=== PATIENT | male | born 1935 | race Caucasian/White ===

== ENCOUNTER 2021-06-27 21:22 | Inpatient (IN) ==
[2021-06-27] MEDS ORDERED: Isovue-370 500 ML BOTTLE IVP ONE (21:36)
[2021-06-27 21:43] LABS: Hemoglobin 13.2 g/dL (12.9-16.9); Immature Granulocytes % 0.7 % (0-4); Lymphocytes # 0.9 K/mcL (0.6-4.6); Lymphocytes % 20.6 %; Mean Corpuscular Hemoglobin 29.5 pg (28.0-33.3); Mean Corpuscular Volume 89.3 fL (83.0-100.0); Mean Platelet Volume 10.5 fL (9.4-12.4); Monocytes # 0.2 K/mcL (0.0-1.3); Monocytes % 5.3 %; Neutrophils # 3.4 K/mcL (1.6-8.9); Platelet Count 189 K/mcL (140-400); Red Blood Count 4.48 M/mcL (4.19-5.50); Red Cell Distribution Width 14.9 % (11.5-14.5); Segmented Neutrophils % 73.4 %; White Blood Count 4.6 K/mcL (4.3-11.1)
[2021-06-27 22:05] LABS: Alanine Aminotransferase 21 Units/L (7-52); Albumin 3.9 g/dL (3.5-5.7); Albumin/Globulin Ratio 1.3 (1.1-2.2); Alkaline Phosphatase 51 Units/L (34-104); Aspartate Amino Transferase 38 Units/L (13-39); BUN/Creatinine Ratio 17 (6-26); Bilirubin,Direct 0.3 mg/dL (0.0-0.2); Bilirubin,Indirect 0.5 mg/dL (0.0-1.0); Bilirubin,Total 0.8 mg/dL (0.3-1.0); Blood Urea Nitrogen 16 mg/dL (8-23); Calcium 8.5 mg/dL (8.6-10.3); Carbon Dioxide 25 mEq/L (23-29); Chloride 106 mEq/L (98-107); Glucose 99 mg/dL (70-105); Magnesium 2.1 mg/dL (1.6-2.6); Osmolality,Calculated 295 (280-300); Potassium 3.9 mEq/L (3.5-5.1); Sodium 142 mEq/L (136-145); Total Protein 6.9 g/dL (6.4-8.9); Troponin I < 0.03 ng/mL (< 0.04); eGFR For African Americans > 60 (> 60); eGFR For Non-African Americans > 60 (> 60)
[2021-06-27 22:18] LABS: Bilirubin,Urine Negative (Negative); Blood,Urine Small (Negative); Clarity,Urine Clear (Clear); Color,Urine Yellow (Yellow); Glucose,Urine (UA) Normal (Normal); Ketones,Urine 60 mg/dL (Negative); Leukocyte Esterase,Urine Negative (Negative); Mucus,Urine Few per lpf (None-Few); Nitrite,Urine Negative (Negative); PH,Urine 6.5 pH Units (5.0-8.0); Protein,Urine 200 mg/dL (Neg-Trace); RBC,Urine 15-30 per hpf (0-3); Specific Gravity,Urine 1.023 (1.010-1.025); Squamous Epithelial Cell,Urine Few per hpf (None-Few); WBC,Urine 0-3 per hpf (0-3)
[2021-06-27 23:48] LABS: Adenovirus Not Detected (Not Detect); Coronavirus 229E Not Detected (Not Detect); Coronavirus HKU1 Not Detected (Not Detect); Coronavirus NL63 Not Detected (Not Detect); Coronavirus OC43 Not Detected (Not Detect)
[2021-06-27 23:50] LABS: Bordetella Pertussis Not Detected (Not Detect); Chlamydophila pneumoniae Not Detected (Not Detect); Human Metapneumovirus Not Detected (Not Detect); Human Rhinovirus/Enterovirus Not Detected (Not Detect); Influenza A Subtype 2009 H1 Not Detected (Not Detect); Influenza B Not Detected (Not Detect); Mycoplasma pneumoniae Not Detected (Not Detect); Parainfluenza Virus 1 Not Detected (Not Detect); Parainfluenza Virus 2 Not Detected (Not Detect); Parainfluenza Virus 3 Not Detected (Not Detect); Parainfluenza Virus 4 Not Detected (Not Detect); Respiratory Syncytial Virus Not Detected (Not Detect); SARS-CoV-2 DETECTED (Not Detect)
[2021-06-28] MEDS ORDERED: 0.9 % Sodium Chloride 1,000 ML IV ONE (01:18)
[2021-06-28] MEDS ORDERED: Melatonin 3 MG TABLET PO PRN (10:39)
[2021-06-28] MEDS ORDERED: Acetaminophen 325 MG TABLET PO PRN (10:39)
[2021-06-28] MEDS ORDERED: Naloxone 0.4 MG/ML INJ IVP PRN (10:39)
[2021-06-28] MEDS ORDERED: Ondansetron 4 MG/2 ML VIAL IVP PRN (10:39)
[2021-06-28 10:58] LABS: Creatine Kinase 144 Units/L (30-223)
[2021-06-28] MEDS ORDERED: Remdesivir 200 MG in 0.9 % Sodium Chloride 100 ML IVPB ONE (11:00)
[2021-06-28] MEDS: Dexamethasone Sodium Phos/PF 10 MG/ML VIAL IVP SCH (13:58)
[2021-06-28] MEDS ORDERED: Haloperidol Lactate 5 MG/ML VIAL IVP ONE ×2 (20:07→21:02)
[2021-06-28] MEDS ORDERED: QUEtiapine Fumarate 25 MG TABLET PO PRN (22:44)
[2021-06-29 05:37] LABS: Hematocrit 39.7 % (37.5-50.1); Hemoglobin 13.6 g/dL (12.9-16.9); Mean Corpuscular HGB Conc 34.3 g/dL (31.6-35.5); Mean Corpuscular Hemoglobin 30.3 pg (28.0-33.3); Mean Corpuscular Volume 88.4 fL (83.0-100.0); Mean Platelet Volume 10.5 fL (9.4-12.4); Platelet Count 225 K/mcL (140-400); Red Blood Count 4.49 M/mcL (4.19-5.50); Red Cell Distribution Width 14.6 % (11.5-14.5)
[2021-06-29 05:40] LABS: White Blood Count 9.6 K/mcL (4.3-11.1)
[2021-06-29] MEDS: *HR* Enoxaparin 40 MG/0.4 ML SYRINGE SQ SCH (06:14)
[2021-06-29 06:23] LABS: Alanine Aminotransferase 18 Units/L (7-52); Albumin/Globulin Ratio 1.3 (1.1-2.2); Alkaline Phosphatase 58 Units/L (34-104); Aspartate Amino Transferase 37 Units/L (13-39); BUN/Creatinine Ratio 25 (6-26); Bilirubin,Direct 0.3 mg/dL (0.0-0.2); Bilirubin,Indirect 0.7 mg/dL (0.0-1.0); Blood Urea Nitrogen 22 mg/dL (8-23); Calcium 8.8 mg/dL (8.6-10.3); Carbon Dioxide 24 mEq/L (23-29); Chloride 108 mEq/L (98-107); Ferritin > 1500 ng/mL (20-250); Glucose 112 mg/dL (70-105); Lactate Dehydrogenase 678 Units/L (140-271); Osmolality,Calculated 300 (280-300); Phosphorous 1.8 mg/dL (2.7-4.5); Potassium 3.5 mEq/L (3.5-5.1); Sodium 143 mEq/L (136-145); eGFR For African Americans > 60 (> 60); eGFR For Non-African Americans > 60 (> 60)
[2021-06-29] MEDS: Dexamethasone Sodium Phos/PF 10 MG/ML VIAL IVP SCH (09:45)
[2021-06-29] MEDS: Remdesivir 100 MG in 0.9 % Sodium Chloride 100 ML IVPB SCH (09:46)
[2021-06-29] MEDS ORDERED: Haloperidol Lactate 5 MG/ML VIAL IM PRN (11:34)
[2021-06-29] MEDS ORDERED: Haloperidol Lactate 5 MG/ML VIAL IVP PRN (11:56)
[2021-06-29] MEDS ORDERED: Dexmedetomidine HCl 400 MCG/100 ML MLS IVC SCH (13:15)
[2021-06-29] MEDS ORDERED: Ziprasidone 10 MG, Closed System Device IM Kit 1 EACH in Water for inj. (sterile) 0.5 ML IM ONE (15:10)
[2021-06-29] MEDS ORDERED: Azithromycin 500 MG in 0.9 % Sodium Chloride 250 ML IVPB SCH (19:00)
[2021-06-29] MEDS ORDERED: cefTRIAXone 2,000 MG in Water for inj. (sterile) 20 ML IVP SCH (19:00)
[2021-06-30 02:04] LABS: Albumin 3.8 g/dL (3.5-5.7); Albumin/Globulin Ratio 1.4 (1.1-2.2); Bilirubin,Direct 0.2 mg/dL (0.0-0.2); Bilirubin,Indirect 0.6 mg/dL (0.0-1.0); Bilirubin,Total 0.8 mg/dL (0.3-1.0); Globulin 2.7 g/dL (2.4-3.5); Total Protein 6.5 g/dL (6.4-8.9)
[2021-06-30] MEDS ORDERED: [UNRECOGNIZED DRUG - OTHER] IM ONE ×2 (03:26→03:45)
[2021-06-30] MEDS ORDERED: ZIPRASIDONE IM ONE ×2 (03:26→03:45)
[2021-06-30] MEDS ORDERED: Morphine Sulfate 2 MG/ML SYRINGE IVP ONE (03:27)
[2021-06-30] MEDS: *HR* Enoxaparin 40 MG/0.4 ML SYRINGE SQ SCH (05:19)
[2021-06-30] MEDS ORDERED: lisinopriL 5 MG TABLET PO SCH (09:00)
[2021-06-30] MEDS: Dexamethasone Sodium Phos/PF 10 MG/ML VIAL IVP SCH (09:23)
[2021-06-30] MEDS ORDERED: 0.9 % Sodium Chloride 1,000 ML ONE (09:52)
[2021-06-30] MEDS ORDERED: 0.9 % Sodium Chloride 1,000 ML IVC ONE (09:52)
[2021-06-30] MEDS ORDERED: Dexamethasone Sodium Phos/PF 10 MG/ML VIAL IVP ONE (10:16)
[2021-06-30 11:03] LABS: Basophils % 0.1 %; Hematocrit 34.2 % (37.5-50.1); Immature Granulocytes % 9.2 % (0-4); Lymphocytes # 0.2 K/mcL (0.6-4.6); Lymphocytes % 1.7 %; Mean Corpuscular HGB Conc 32.2 g/dL (31.6-35.5); Mean Corpuscular Hemoglobin 29.3 pg (28.0-33.3); Mean Corpuscular Volume 91.2 fL (83.0-100.0); Mean Platelet Volume 11.4 fL (9.4-12.4); Monocytes # 0.3 K/mcL (0.0-1.3); Monocytes % 1.8 %; Neutrophils # 12.5 K/mcL (1.6-8.9); Platelet Count 197 K/mcL (140-400); Red Blood Count 3.75 M/mcL (4.19-5.50); Red Cell Distribution Width 15.4 % (11.5-14.5); Segmented Neutrophils % 87.2 %; White Blood Count 14.3 K/mcL (4.3-11.1)
[2021-06-30] MEDS: Remdesivir 100 MG in 0.9 % Sodium Chloride 100 ML IVPB SCH (11:10)
[2021-06-30 11:46] LABS: Calcium 7.9 mg/dL (8.6-10.3); Potassium 3.9 mEq/L (3.5-5.1)
[2021-06-30 13:05] LABS: Platelet Estimate Normal (Normal)
[2021-06-30] MEDS ORDERED: D5% in 0.45% NACL 1,000 ML IVC SCH (16:15)
[2021-06-30] MEDS ORDERED: Piperacillin/Tazobactam 3.375 GM in 0.9 % Sodium Chloride Mini Bag 100 ML IVPB SCH (17:00)
[2021-06-30] MEDS ORDERED: Levothyroxine Sodium 100 MCG VIAL IVP SCH (17:00)
[2021-06-30] MEDS: Haloperidol Lactate 5 MG/ML VIAL IVP PRN ×2 (17:01→21:24)
[2021-06-30] MEDS: Morphine Sulfate 2 MG/ML SYRINGE IVP PRN ×2 (17:57→21:25)
[2021-06-30] MEDS ORDERED: Pantoprazole 40 MG VIAL IVP SCH (18:00)
[2021-07-01] MEDS: Morphine Sulfate 2 MG/ML SYRINGE IVP PRN ×13 (00:45→23:30)
[2021-07-01] MEDS: Haloperidol Lactate 5 MG/ML VIAL IVP PRN ×4 (01:59→20:45)
[2021-07-01] MEDS ORDERED: *HR* Enoxaparin 30 MG/0.3 ML SYRINGE SQ SCH (06:00)
[2021-07-01] MEDS ORDERED: Dexamethasone Sodium Phos/PF 10 MG/ML VIAL IVP SCH (09:00)
[2021-07-01 14:34] LABS: C-Reactive Protein 69 mg/L (Less than 10)
[2021-07-01] MEDS ORDERED: Haloperidol Lactate 5 MG/ML VIAL IVP ONE (14:43)
[2021-07-01] MEDS ORDERED: Morphine Sulfate 2 MG/ML SYRINGE IVP PRN (14:56)
[2021-07-01] MEDS ORDERED: *HR* LORazepam 2 MG/ML VIAL IVP ONE (18:14)
[2021-07-02] MEDS: Haloperidol Lactate 5 MG/ML VIAL IVP PRN ×4 (00:57→17:46)
[2021-07-02] MEDS: Morphine Sulfate 2 MG/ML SYRINGE IVP PRN ×20 (00:57→23:27)
[2021-07-02 04:15] LABS: Acinetobacter baumannii by PCR Not Detected (Not Detect); Candida albicans by PCR Not Detected (Not Detect); Candida glabrata by PCR Not Detected (Not Detect); Candida krusei by PCR Not Detected (Not Detect); Candida parapsilosis by PCR Not Detected (Not Detect); Candida tropicalis by PCR Not Detected (Not Detect); Enterobacter cloacae Cmplx PCR Not Detected (Not Detect); Enterobacteriaceae by PCR Not Detected (Not Detect); Enterococcus by PCR Not Detected (Not Detect); Escherichia coli by PCR Not Detected (Not Detect); Klebsiella oxytoca by PCR Not Detected (Not Detect); Klebsiella pneumoniae by PCR Not Detected (Not Detect); Proteus by PCR Not Detected (Not Detect); Pseudomonas aeruginosa by PCR Not Detected (Not Detect); Serratia marcescens by PCR Not Detected (Not Detect); Staphylococcus aureus by PCR Not Detected (Not Detect); Staphylococcus by PCR DETECTED (Not Detect); Streptococcus agalactiae(B)PCR Not Detected (Not Detect); Streptococcus by PCR Not Detected (Not Detect); Streptococcus pneumoniae PCR Not Detected (Not Detect); Streptococcus pyogenes (A) PCR Not Detected (Not Detect); mecA Methicillin-Resist Gene DETECTED (Not Detect)
[2021-07-02 08:11] VITALS: BP 103/76; PULSE 94; TEMP 99.9; O2SAT 69
[2021-07-02] MEDS ORDERED: Morphine Sulfate 2 MG/ML SYRINGE IVP SCH (13:15)
[2021-07-02] MEDS ORDERED: *HR* HYDROmorphone (PF) 1 MG/ML SYRINGE IVP PRN (16:29)
[2021-07-03] MEDS: Morphine Sulfate 2 MG/ML SYRINGE IVP PRN ×2 (00:33→02:47)
== END 2021-07-03 05:32 | disposition expired | DRG 177 ==
LOC: EMEROOARM 21:22 → 2NENU 21:22 → SUATTDRO 06-28 11:18 → 2NENU 06-28 13:12
PROVIDERS: ADMIT Internal Medicine; ATTEND Student in an Organized Health Care Education/Training Program